=== PATIENT | female | born 1975 | race Caucasian/White ===

== ENCOUNTER 2018-12-16 13:01 | Inpatient (IN) | payer SELFPAY ==
[~2018-12-16] VITALS: Ht 157.5 cm; Wt 71.7 kg
[2018-12-16] MEDS ORDERED: SODIUM CHLORIDE 0.9% 1,000 ML IV ONE (13:18)
[2018-12-16 13:37] LABS: BASOPHILS % 0.6 % (0.0-2.0); HEMATOCRIT. 35.2 % (36.0-48.0); LYMPHOCYTES % 35.6 % (20.0-50.0); MEAN CORPUSCULAR HEMOGLOBIN 29.6 pg (28.0-32.0); MEAN CORPUSCULAR VOLUME 86.6 fL (81.0-99.0); MEAN PLATELET VOLUME 8.5 fl (7.4-10.4); MONOCYTES % 6.8 % (2.0-8.0); PLATELET 294 x1000/uL (130-400); RED BLOOD CELL COUNT 4.07 mill/uL (4.2-5.4)
[2018-12-16 13:44] LABS: CHLORIDE 104 mEq/L (98-107)
[2018-12-16 13:49] LABS: ETHANOL BLOOD < 10 mg/dL
[2018-12-16 13:51] LABS: HCG SCREEN NEGATIVE
[2018-12-16 13:53] LABS: T4 FREE 0.96 ng/dL (0.76-1.46)
[2018-12-16] MEDS ORDERED: POTASSIUM CHLORIDE 20MEQ TABLET SR PO ONE (14:45)
[2018-12-16] MEDS ORDERED: ONDANSETRON HCL 4MG/2ML INJ IV ONE (15:15)
[2018-12-16 18:20] VITALS: BP 117/79
[2018-12-16 18:37] LABS: *AMPHETAMINES SCREEN URINE NEGATIVE (NEGATIVE); *BARBITURATES SCREEN URINE NEGATIVE (NEGATIVE); *BENZODIAZEPINES SCREEN URINE NEGATIVE (NEGATIVE); *COCAINE SCREEN URINE NEGATIVE (NEGATIVE); METHADONE URINE SCREEN NEGATIVE (NEGATIVE)
[2018-12-16 18:38] LABS: OPIATES URINE SCREEN NEGATIVE (NEGATIVE); PHENCYCLIDINE URINE SCREEN NEGATIVE (NEGATIVE)
[2018-12-16] MEDS ORDERED: ONDANSETRON HCL 4MG/2ML INJ IV PRN (18:45)
[2018-12-16] MEDS ORDERED: LORAZEPAM 2MG/ML CPJ IV PRN (18:45)
[2018-12-16 18:48] LABS: CANNABINOID URINE SCREEN PRESUMTIVE POSITIVE (NEGATIVE)
[2018-12-16] MEDS ORDERED: MORPHINE SULFATE 2 MG/ML CPJ (NOT FOR IM USE) IV PRN (18:58)
[2018-12-16 20:00] VITALS: BP 121/67
[2018-12-16] MEDS ORDERED: KCL 10MEQ/50ML PREMIX 50 ML IV NR (20:00)
[2018-12-16] MEDS: SODIUM CHLORIDE 0.9% 1,000 ML IV SCH (21:52)
[2018-12-16] MEDS: ENOXAPARIN 40MG/0.4ML SYR SUBCUT SCH (21:53)
[2018-12-17] VITALS (7 sets, daily range): BP systolic 104–145; BP diastolic 60–83
[2018-12-17 00:26] LABS: CREATINE KINASE 159 IU/L (26-192)
[2018-12-17 00:27] LABS: CREATINE KINASE MB FRACTION < 1.0 ng/mL (0.5-3.6)
[2018-12-17] MEDS: SODIUM CHLORIDE 0.9% 1,000 ML IV SCH ×2 (05:24→10:53)
[2018-12-17 07:26] LABS: CREATINE KINASE 126 IU/L (26-192)
[2018-12-17 07:28] LABS: CREATINE KINASE MB FRACTION < 1.0 ng/mL (0.5-3.6)
[2018-12-17] MEDS ORDERED: PNEUMOCOCCAL 23-VAL P-SAC VAC 0.5 ML IM ONE (08:00)
[2018-12-17] MEDS: ASPIRIN 81MG EC TABLET PO SCH (08:05)
[2018-12-17] MEDS: THIAMINE HCL 100MG TABLET PO SCH (08:05)
[2018-12-17] MEDS: FOLIC ACID 1MG TABLET PO SCH (08:05)
[2018-12-17] MEDS ORDERED: FAMOTIDINE 20MG TABLET PO NR (10:00)
[2018-12-17] MEDS: HYDROCODONE/ACETAMINOPHEN 5/325MG TABLET PO PRN (16:23)
[2018-12-17 18:18] LABS: BASOPHILS % 0.6 % (0.0-2.0); EOSINOPHILS % 2.1 % (0.0-5.0); HEMATOCRIT. 36.7 % (36.0-48.0); HEMOGLOBIN. 12.1 g/dL (12.0-16.0); LYMPHOCYTES % 29.5 % (20.0-50.0); MEAN CORPUSCULAR HEMOGLOBIN 29.1 pg (28.0-32.0); MEAN PLATELET VOLUME 8.6 fl (7.4-10.4); MONOCYTES % 7.7 % (2.0-8.0); NEUTROPHILS % 60.1 % (40.0-76.0); PLATELET 309 x1000/uL (130-400); RED BLOOD CELL COUNT 4.17 mill/uL (4.2-5.4); RED CELL DISTRIBUTION WIDTH 13.4 % (11.6-14.6)
[2018-12-17 18:31] LABS: CHLORIDE 108 mEq/L (98-107)
[2018-12-17 18:39] LABS: LDL CHOLESTEROL 155 mg/dL (5-100)
[2018-12-17 18:40] LABS: HDL CHOLESTEROL 35 mg/dL (40-59)
[2018-12-17 18:51] LABS: CLARITY URINE CLEAR (CLEAR); COLOR URINE YELLOW (YELLOW); KETONES URINE NEGATIVE (NEGATIVE); LEUKOCYTE ESTERASE URINE 2+ (NEGATIVE); NITRITE URINE NEGATIVE (NEGATIVE); OCCULT BLOOD URINE NEGATIVE (NEGATIVE); PH URINE 6.5 (4.5-8.0); PROTEIN URINE NEGATIVE (NEGATIVE); SPECIFIC GRAVITY URINE 1.006 (1.005-1.030); UROBILINOGEN URINE 0.2 E.U./dL (0.2-1.0)
[2018-12-17] MEDS: ENOXAPARIN 40MG/0.4ML SYR SUBCUT SCH (20:55)
[2018-12-17] MEDS: FAMOTIDINE 20MG TABLET PO SCH (20:55)
[2018-12-18] VITALS: BP 120/60
[2018-12-18] MEDS: SODIUM CHLORIDE 0.9% 1,000 ML IV SCH ×2 (00:54→11:55)
[2018-12-18] MEDS: HYDROCODONE/ACETAMINOPHEN 5/325MG TABLET PO PRN (00:55)
[2018-12-18 04:00] VITALS: BP 115/65
[2018-12-18 08:11] LABS: BASOPHILS % 0.6 % (0.0-2.0); EOSINOPHILS % 3.4 % (0.0-5.0); HEMATOCRIT. 36.4 % (36.0-48.0); LYMPHOCYTES % 30.7 % (20.0-50.0); MEAN CORPUSCULAR HEMOGLOBIN 29.1 pg (28.0-32.0); MEAN CORPUSCULAR VOLUME 88.7 fL (81.0-99.0); MEAN PLATELET VOLUME 8.7 fl (7.4-10.4); MONOCYTES % 6.9 % (2.0-8.0); NEUTROPHILS % 58.4 % (40.0-76.0); PLATELET 278 x1000/uL (130-400); RED BLOOD CELL COUNT 4.11 mill/uL (4.2-5.4); RED CELL DISTRIBUTION WIDTH 13.1 % (11.6-14.6)
[2018-12-18 08:16] VITALS: BP 115/72
[2018-12-18 08:20] LABS: CHLORIDE 105 mEq/L (98-107)
[2018-12-18] MEDS: THIAMINE HCL 100MG TABLET PO SCH (08:24)
[2018-12-18] MEDS: FOLIC ACID 1MG TABLET PO SCH (08:24)
[2018-12-18] MEDS: ASPIRIN 81MG EC TABLET PO SCH (08:24)
[2018-12-18 11:57] VITALS: BP 100/67
[2018-12-18 15:55] VITALS: BP 111/68
[2018-12-18] MEDS: ENOXAPARIN 40MG/0.4ML SYR SUBCUT SCH (20:48)
[2018-12-18] MEDS: FAMOTIDINE 20MG TABLET PO SCH (20:48)
[2018-12-18] MEDS ORDERED: CEFTRIAXONE 1 G PREMIX 50 ML IV SCH (23:30)
[2018-12-19 00:08] VITALS: BP 124/56
[2018-12-19 01:17] LABS: BASOPHILS % 0.4 % (0.0-2.0); EOSINOPHILS % 2.1 % (0.0-5.0); HEMATOCRIT. 35.6 % (36.0-48.0); MEAN CORPUSCULAR HEMOGLOBIN 29.5 pg (28.0-32.0); MEAN CORPUSCULAR VOLUME 87.2 fL (81.0-99.0); MEAN PLATELET VOLUME 8.9 fl (7.4-10.4); NEUTROPHILS % 58.5 % (40.0-76.0); PLATELET 289 x1000/uL (130-400); RED BLOOD CELL COUNT 4.08 mill/uL (4.2-5.4)
[2018-12-19 05:34] VITALS: BP 112/60
[2018-12-19 08:00] VITALS: BP 110/72
[2018-12-19] MEDS: ASPIRIN 81MG EC TABLET PO SCH (08:42)
[2018-12-19] MEDS: FOLIC ACID 1MG TABLET PO SCH (08:42)
[2018-12-19] MEDS: THIAMINE HCL 100MG TABLET PO SCH (08:42)
[2018-12-19 10:50] VITALS: BP 110/72
== END 2018-12-19 11:50 | disposition home or self-care (01) | DRG 48 ==
LOC: ER 13:01 → 6WST 15:11 → EDBEDREQTM 15:19 → EDBEDREQ 15:20 → ENRESERV 15:41
PROVIDERS: ADMIT Internal Medicine Nephrology; ATTEND Internal Medicine Nephrology
DX: G90.8 Other disorders of autonomic nervous system (principal); E78.00 Pure hypercholesterolemia, unspecified; E87.6 Hypokalemia; I10 Essential (primary) hypertension; N39.0 Urinary tract infection, site not specified; K21.9 Gastro-esophageal reflux disease without esophagitis; Z79.899 Other long term (current) drug therapy
CPT/HCPCS: 36415; 71045; 73130; 80048; 80061; 80305; 80320; 81003; 82550; 82553; 83880; 84439; 84443; 84484; 84703; 93005; 93306; 99285; J0696; J1650; J2270; J2405; J3480; J7030; G0480